=== PATIENT | male | born 1955 | race Caucasian/White ===

== ENCOUNTER 2020-09-23 14:28 | Outpatient (CLI) | payer MEDICARE, MEDICAID, SELFPAY ==
--- NOTE | 2020-09-23 14:35 | CT_ITS ---
WS: [id number] CT SINUSES TECHNIQUE: Noncontrast CT of the paranasal sinuses with coronal and sagittal reformatted images. CLINICAL INFORMATION: TRAPEZIUS MUSCLE SPASM,OTHER DISORDERS OF NOSE/NASAL SINUSES COMPARISON: None. DLP: 331.[address] scans at [facility] use at least one of these dose optimization techniques: automat ed exposure control; mA and/or kV adjustment per patient size (includes targeted exams where dose is matched to clinical indication); or iterative reconstruction. FINDINGS: Mild right to left nasal septal deviation measuring 3 mm. Leftward directed nasal spur. Left maxillar y sinusitis with air-fluid levels. Opacification of the left ostiomeatal unit. Right ostiomeatal unit is patent. Small bilateral Ashley cells. Right maxillary sinus is well aerated. Frontal sinuses are well aerated. Mild mucosal thickening in the ethmoid air cells. Sphenoid sinuses are well aerated. Sphenoid ostia are patent. Mild mucosal thickening in the posterior ethmoid air bryce ls. Mastoid air cells are well aerated. Cavernous sinus calcification. Chronic lacunar infarct left thala mus partially visualized intracranial images. Several incompletely evaluated chronic lacunar infarcts in the basal ganglia. CT/CT sinus wo con* [id number] IMPRESSION: 1. Mild right to left nasal septal deviation measuring 2-3 mm. 2. Left maxillary sinusitis with air-fluid levels. Opacification of the left o stiomeatal unit. 3. Right ostiomeatal unit is patent. 4. Frontal sinuses and sphenoid sinuses are well aerated. Right maxillary sinu s is well aerated. 5. Mastoid air cells are well aerated. 6. Chronic lacunar infarcts partially visualized in the basal ganglia.
== END 2020-09-23 14:29 | disposition home or self-care (01) ==
PROVIDERS: PCP Urology; Visit Provider Nurse Practitioner Family
DX: J34.89 Other specified disorders of nose and nasal sinuses (principal); J34.2 Deviated nasal septum; J32.1 Chronic frontal sinusitis; I63.81 Other cerebral infarction due to occlusion or stenosis of small artery
CPT/HCPCS: 70486